=== PATIENT | male | born 1965 | race Caucasian/White ===

== ENCOUNTER 2020-03-22 11:51 | Outpatient (REF) | payer OTHER, SELFPAY ==
[2020-03-22 13:25] LABS: MANUAL DIFF FLAG NO
[2020-03-22 13:32] LABS: Basophils Absolute Auto 0.1 X10*3/uL (0.0-0.2); Eosinophils Absolute Auto 0.3 X10*3/uL (0.0-0.4); Eosinophils Percent Auto 3.2 % (0-4); Hematocrit 45.8 % (42-52); Hemoglobin 15.1 g/dl (14.0-18.0); Imm Gran Abs Auto 0.08 X10*3/uL (0.00-0.03); Lymphocytes Absolute Auto 2.2 X10*3/uL (1.2-4.9); Lymphocytes Percent Auto 26.7 % (20-40); Mean Corpuscular Hemoglobin 30.2 pg (27.0-33.0); Mean Corpuscular Volume 91.6 fL (80-98); Mean Platelet Volume 10.4 fL (9.4-12.4); Monocytes Absolute Auto 0.7 X10*3/uL (0.1-1.2); Monocytes Percent Auto 8.5 % (2-11); Neutrophils Absolute Auto 4.9 X10*3/uL (2.0-8.3); Neutrophils Percent Auto 59.6 % (45-73); Platelet Count 261 X10*3/uL (160-400); Red Cell Distribution Width 11.9 % (11.0-16.0); White Blood Count 8.2 X10*3/uL (4.8-10.8)
[2020-03-22 14:03] LABS: Alanine Aminotransferase 28 U/L (0-40); Albumin Level 4.5 g/dL (3.5-5.0); Alkaline Phosphatase 69 U/L (39-117); Aspartate Amino Transferase 16 U/L (5-37); Blood Urea Nitrogen 11 mg/dL (9-16); Calcium 9.2 mg/dL (8.4-10.2); Cholesterol 149 mg/dL; Estimated Glomerular Filt Rate > 60; HDL Cholesterol 70 mg/dL; LDL Cholesterol Calculated 67 mg/dl; Total Protein 6.7 g/dL (6.5-8.0); Triglycerides 61 mg/dL
[2020-03-22 14:12] LABS: Anion Gap 16 (12-20); Carbon Dioxide 23 mmol/L (22-29); Chloride 102 mmol/L (96-108); Glucose Fasting 342 mg/dL (60-99); Potassium 5.6 mmol/l (3.3-5.1); Sodium 135 mmol/L (135-145)
[2020-03-22 14:21] LABS: Creatinine Urine 59.29 mg/dL; Microalbumin Urine < 5.0 mg/L
[2020-03-22 14:33] LABS: Hemoglobin A1c % > 14.0 %
== END 2020-03-22 11:52 | disposition home or self-care (01) ==
LOC: HO.LAB 11:51
PROVIDERS: PCP Internal Medicine; Visit Provider Internal Medicine
DX: Z12.5 Encounter for screening for malignant neoplasm of prostate (principal); E78.00 Pure hypercholesterolemia, unspecified; I10 Essential (primary) hypertension; E11.9 Type 2 diabetes mellitus without complications
CPT/HCPCS: 36415; 80053; 80061; 82043; 83036; 84153; 85025

== ENCOUNTER 2021-01-20 15:49 | Outpatient (REF) | payer OTHER, SELFPAY ==
[2021-01-20 16:50] LABS: MANUAL DIFF FLAG NO
[2021-01-20 16:52] LABS: Basophils Percent Auto 0.4 % (0-2); Eosinophils Absolute Auto 0.1 X10*3/uL (0.0-0.4); Eosinophils Percent Auto 1.2 % (0-4); Hematocrit 41.6 % (42-52); Hemoglobin 14.1 g/dl (14.0-18.0); Imm Gran Pct Auto 1.3 % (0.0-0.4); Lymphocytes Absolute Auto 1.4 X10*3/uL (1.2-4.9); Lymphocytes Percent Auto 17.8 % (20-40); Mean Corpuscular HGB Conc 33.9 g/dl (31.0-36.0); Mean Corpuscular Hemoglobin 29.9 pg (27.0-33.0); Mean Corpuscular Volume 88.3 fL (80-98); Mean Platelet Volume 9.6 fL (9.4-12.4); Monocytes Absolute Auto 0.8 X10*3/uL (0.1-1.2); Neutrophils Absolute Auto 5.4 X10*3/uL (2.0-8.3); Neutrophils Percent Auto 69.3 % (45-73); Platelet Count 430 X10*3/uL (160-400); Red Blood Count 4.71 X10*6/uL (4.60-5.80); Red Cell Distribution Width 11.3 % (11.0-16.0); White Blood Count 7.8 X10*3/uL (4.8-10.8)
[2021-01-20 17:08] LABS: Hemoglobin A1c % > 14.0 %
[2021-01-20 17:48] LABS: Thyroid Stimulating Hormone 0.97 uIU/mL (0.32-4.0)
[2021-01-20 18:26] LABS: Creatinine Urine 44.18 mg/dL; Microalbumin Urine < 5.0 mg/L
[2021-01-20 19:23] LABS: Alanine Aminotransferase 11 U/L (0-40); Albumin Level 3.8 g/dL (3.5-5.0); Alkaline Phosphatase 53 U/L (39-117); Anion Gap 19 (12-20); Aspartate Amino Transferase 11 U/L (5-37); Bilirubin Total 0.4 mg/dL (0.0-1.0); Blood Urea Nitrogen 10 mg/dL (9-16); Calcium 9.2 mg/dL (8.4-10.2); Carbon Dioxide 20 mmol/L (22-29); Chloride 101 mmol/L (96-108); Estimated Glomerular Filt Rate > 60; Glucose Random 527 mg/dL (60-115); Potassium 4.7 mmol/L (3.3-5.1); Sodium 135 mmol/L (135-145); Total Protein 6.5 g/dL (6.5-8.0)
== END 2021-01-20 15:50 | disposition home or self-care (01) ==
LOC: HO.LAB 15:49
PROVIDERS: PCP Internal Medicine; Visit Provider Internal Medicine
DX: E11.9 Type 2 diabetes mellitus without complications (principal); E78.00 Pure hypercholesterolemia, unspecified; R63.4 Abnormal weight loss
CPT/HCPCS: 36415; 80053; 82043; 83036; 84443; 85025

== ENCOUNTER 2021-01-23 16:26 | Emergency (ER) | payer OTHER, SELFPAY ==
[2021-01-23 17:01] VITALS: BP 115/69; PULSE 99; RESP 16; TEMP 37.1; O2SAT 99; BMI 30.2
[2021-01-23 18:01] LABS: Glucose, Whole Blood 281 mg/dL (60-115)
[2021-01-23 18:12] LABS: MANUAL DIFF FLAG NO
[2021-01-23 18:18] LABS: Basophils Percent Auto 0.4 % (0-2); Eosinophils Absolute Auto 0.1 X10*3/uL (0.0-0.4); Eosinophils Percent Auto 1.2 % (0-4); Hematocrit 41.6 % (42-52); Imm Gran Abs Auto 0.12 X10*3/uL (0.00-0.03); Imm Gran Pct Auto 1.3 % (0.0-0.4); Lymphocytes Absolute Auto 2.4 X10*3/uL (1.2-4.9); Lymphocytes Percent Auto 26.5 % (20-40); Mean Corpuscular HGB Conc 33.7 g/dl (31.0-36.0); Mean Corpuscular Volume 89.1 fL (80-98); Mean Platelet Volume 8.8 fL (9.4-12.4); Monocytes Absolute Auto 0.8 X10*3/uL (0.1-1.2); Monocytes Percent Auto 8.5 % (2-11); Neutrophils Absolute Auto 5.6 X10*3/uL (2.0-8.3); Neutrophils Percent Auto 62.1 % (45-73); Platelet Count 496 X10*3/uL (160-400); Red Blood Count 4.67 X10*6/uL (4.60-5.80); Red Cell Distribution Width 11.4 % (11.0-16.0)
[2021-01-23 18:37] LABS: Acetone, serum QL Negative (Negative)
[2021-01-23 18:39] LABS: Anion Gap 15 (12-20); Blood Urea Nitrogen 8 mg/dL (9-16); Calcium 9.7 mg/dL (8.4-10.2); Carbon Dioxide 26 mmol/L (22-29); Chloride 103 mmol/L (96-108); Creatinine Clr Calc Pharmacy 111.8; Estimated Glomerular Filt Rate > 60; Glucose Random 319 mg/dL (60-115); Potassium 5.1 mmol/L (3.3-5.1); Sodium 139 mmol/L (135-145)
[2021-01-23 21:15] VITALS: BP 150/73; PULSE 102; RESP 18; O2SAT 99
--- NOTE | 2021-01-23 21:24 | ED_ITS ---
HPI - General Adult General Chief complaint: Recheck/Abnormal Lab/Rx Stated complaint: Uncontrolled Diabetes Time Seen by Provider: 01/23/21 21:11 Source: patient Mode of arrival: ambulatory Limitations: no limitations History of Present Illness HPI narrative: 56-year-old male with history of diabetes type 2 patient recently started on Trulicity once a week (patient received it once last week). Patient's blood sugar has been going hi, and patient was seen by his PCP treated for sinusitis last week. Because patient's blood sugar was uncontrolled he so his PCP today who sent him for admission to the hospital while patient in the hospital blood sugar was 315 with no anion gap or indication for DKA. Patient was easily controlled with IV fluids and insulin. Related Data Allergies Allergy/AdvReac Type Severity Reaction Status Date / Time feathers [FEATHERS] Allergy Unknown SINUS Unverified 02/22/20 17:29 PROBLEMS mold [MOLD] Allergy Unknown SINUS Unverified 02/22/20 17:29 PROBLEMS ENVIRONMENTAL Allergy Unknown SINUS Uncoded 02/22/20 17:29 PROBLEMS Review of Systems Review of Systems: All other systems are reviewed and are negative Constitutional: Reports as per HPI and Reports no additional constitutional complaints Eyes: Reports as per HPI and Reports no additional eye complaints Reports system reviewed and no additional complaints, except as documented Cardiovascular: Reports as per HPI and Reports no additional cardiovascular complaints Respiratory: Reports as per HPI and Reports no additional respiratory complaints Gastrointestinal: Reports as per HPI and Reports no additional gastrointestinal complaints Genitourinary: Reports no additional female genitourinary complaints Musculoskeletal: Reports no additional musculoskeletal complaints Skin/Breast: Reports system reviewed and no additional complaints, except as docu Psychiatric: Reports no additional psychiatric complaints Endocrine: Reports no additional endocrine complaints Hematologic/Lymphatic: Reports no additional hematologic/lymphatic complaints Allergic/Immunologic: Reports no additional allergic/immunologic complaints Reports system reviewed and no additional complaints, except as documented and Reports Abnormal speech present [facility] Past Medical History Medical History Acid reflux Diabetes Psoriasis Social History Social History Advance Directives: No Advance Directives Information Provided: No Physical Exam Vital Signs: Vital Signs: Last Vital Signs Temp 98.7 F 01/23/21 17:01 Pulse 86 01/23/21 23:35 Resp 16 01/23/21 23:35 BP 156/89 H 01/23/21 23:35 Pulse Ox 98 01/23/21 23:35 Body Mass Index 30.2 Vital signs have been reviewed as appeared to be correct. Blood pressure normal. Heart rate is elevated. Respiration rate normal. Temperature normal. Oxygen saturation normal. Appearance: Alert. Oriented X3. No acute distress. Head: Normal external exam. Normocephalic. Atraumatic. No Roberson signs noted. No raccoon eyes noted Eyes: PERRLA. EOMI. Conjunctiva and sclera normal. Eyelids normal. ENT: TM's Normal. Pharynx normal. Uvula midline. Moist mucous membranes. No trismus noted. No drooling noted. No muffled voice noted. Neck: Normal inspection. Neck supple. FROM. No adenopathy. Thyroid Normal. No meningeal signs. No neck mass noted. CVS: Normal heart rate and rhythm. Heart sound normal. No murmurs noted. Pulses normal throughout. Respiratory: No respiratory distress. Painless inspiration. Breath sounds normal. No wheezes/rales/rhonchi noted. Chest nontender. No accessory muscle usage noted or decreased air movement noted. Abdomen: Soft and nontender. Bowel sounds normal in all 4 quadrants. No distention noted. No organomegaly noted. No visible injury noted. Back: No CVA tenderness. Full range of motion noted. Skin: Skin warm and dry. Normal skin color. Normal skin turgor. No rashes/ lesions/lacerations noted. Extremities: No lower extremity edema. Extremities exhibit normal range of motion. Extremities nontender. Neuro: Oriented X 3. Cranial nerve exam: II-XII are grossly intact No motor deficit. No sensory deficit. Reflexes normal. Course Course Course Narrative: Assessment and plan. 56-year-old male with type 2 diabetes uncontrolled, patient on Trulicity once a week patient was sent by his PCP for uncontrolled high blood sugar and patient just finished a course of antibiotic for sinusitis. Patient is not in DKA, blood sugar was controlled with IV fluid and insulin IV. Patient is not meeting criteria for admission at this point. The case discussed with Dr. Leach and the patient to call for appointment tomorrow. Medical Decision Making Lab Data Lab results reviewed: Yes I reviewed the patient's lab results. Result diagrams: 01/23/21 18:07 01/23/21 18:07 Labs: Lab Results 01/23/21 01/23/21 01/23/21 Range/Units 17:56 18:07 18:07 WBC 9.0 (4.8-10.8) X10*3/uL RBC 4.67 (4.60-5.80) X10*6/uL Hgb 14.0 (14.0-18.0) g/dl Hct 41.6 L (42-52) % MCV 89.1 (80-98) fL MCH 30.0 (27.0-33.0) pg MCHC 33.7 (31.0-36.0) g/dl RDW 11.4 (11.0-16.0) % Plt Count 496 H (160-400) X10*3/uL MPV 8.8 L (9.4-12.4) fL Immature Gran % (Auto) 1.3 H (0.0-0.4) % Neut % (Auto) 62.1 (45-73) % Lymph % (Auto) 26.5 (20-40) % Mar[place]osa % (Auto) 8.5 (2-11) % Eos % (Auto) 1.2 (0-4) % Baso % (Auto) 0.4 (0-2) % Lymph # (Auto) 2.4 (1.2-4.9) X10*3/uL [place] # (Auto) 0.8 (0.1-1.2) X10*3/uL Eos # (Auto) 0.1 (0.0-0.4) X10*3/uL Baso # (Auto) 0.0 (0.0-0.2) X10*3/uL Abs Immat Gran (auto) 0.12 H (0.00-0.03) X10*3/uL Absolute Neuts (auto) 5.6 (2.0-8.3) X10*3/uL Absolute Nucleated RBC 0.000 (0.0-0.012) X10*3/uL Nucleated RBC % (auto) 0.0 (0.0-0.2) /100WBC Sodium (135-145) mmol/L Potassium (3.3-5.1) mmol/L Chloride (96-108) mmol/L Carbon Dioxide (22-29) mmol/L Anion Gap (12-20) BUN (9-16) mg/dL Creatinine (0.5-1.4) mg/dL Estim Creat Clear Calc Estimated GFR POC Glucose 281 H (60-115) mg/dL Random Glucose (60-115) mg/dL Calcium (8.4-10.2) mg/dL Acetone, Qual Negative (Negative) 01/23/21 01/23/21 01/23/21 Range/Units 18:07 21:45 23:27 WBC (4.8-10.8) X10*3/uL RBC (4.60-5.80) X10*6/uL Hgb (14.0-18.0) g/dl Hct (42-52) % MCV (80-98) fL MCH (27.0-33.0) pg MCHC (31.0-36.0) g/dl RDW (11.0-16.0) % Plt Count (160-400) X10*3/uL MPV (9.4-12.4) fL Immature Gran % (Auto) (0.0-0.4) % Neut % (Auto) (45-73) % Lymph % (Auto) (20-40) % Mariposa % (Auto) (2-11) % Eos % (Auto) (0-4) % Baso % (Auto) (0-2) % Lymph # (Auto) (1.2-4.9) X10*3/uL [place] # (Auto) (0.1-1.2) X10*3/uL Eos # (Auto) (0.0-0.4) X10*3/uL Baso # (Auto) (0.0-0.2) X10*3/uL Abs Immat Gran (auto) (0.00-0.03) X10*3/uL Absolute Neuts (auto) (2.0-8.3) X10*3/uL Absolute Nucleated RBC (0.0-0.012) X10*3/uL Nucleated RBC % (auto) (0.0-0.2) /100WBC Sodium 139 (135-145) mmol/L Potassium 5.1 (3.3-5.1) mmol/L Chloride 103 (96-108) mmol/L Carbon Dioxide 26 (22-29) mmol/L Anion Gap 15 (12-20) BUN 8 L (9-16) mg/dL Creatinine 0.77 (0.5-1.4) mg/dL Estim Creat Clear Calc 111.8 Estimated GFR > 60 POC Glucose 304 H 226 H (60-115) mg/dL Random Glucose 319 H D (60-115) mg/dL Calcium 9.7 (8.4-10.2) mg/dL Acetone, Qual (Negative) Discharge Plan Discharge Clinical Impression: Diabetes mellitus Qualifiers: Diabetes mellitus type: type 2 Diabetes mellitus prison insulin use: without prison use Diabetes mellitus complication status: with hyperglycemia Qualified Code(s): E11.65 - Type 2 diabetes mellitus with hyperglycemia Patient Disposition: Home, Self-Care Instructions: Diabetes and Nutrition (ED) Referrals: Jarad Leach MD [Primary Care Provider] - 2 days
[2021-01-23] MEDS: Insulin Regular, Human 100 UNIT/ML 3 ML VIAL IVPUSH (21:46)
[2021-01-23] MEDS: 0.9 % Sodium Chloride 1,000 ML 999 ML IVCONT (21:47)
[2021-01-23 21:54] LABS: Glucose, Whole Blood 304 mg/dL (60-115)
[2021-01-23 23:30] LABS: Glucose, Whole Blood 226 mg/dL (60-115)
[2021-01-23 23:35] VITALS: BP 156/89; PULSE 86; RESP 16; O2SAT 98
== END 2021-01-24 00:08 | disposition home or self-care (01) ==
PROVIDERS: Emergency Provider Emergency Medicine; PCP Internal Medicine
DX: E11.65 Type 2 diabetes mellitus with hyperglycemia (principal)
CPT/HCPCS: 36415; 80048; 82009; 82947; 85025; 96361; 96374; 99284

== ENCOUNTER 2021-09-05 15:26 | Outpatient (REF) | payer OTHER, SELFPAY ==
[2021-09-05 15:56] LABS: Basophils Absolute Auto 0.1 X10*3/uL (0.0-0.2); Basophils Percent Auto 0.6 % (0-2); Eosinophils Absolute Auto 0.2 X10*3/uL (0.0-0.4); Eosinophils Percent Auto 1.6 % (0-4); Hematocrit 44.4 % (42.0-52.0); Hemoglobin 14.9 g/dl (14.0-18.0); Imm Gran Abs Auto 0.05 X10*3/uL (0.00-0.03); Imm Gran Pct Auto 0.5 % (0.0-0.4); Lymphocytes Absolute Auto 2.9 X10*3/uL (1.2-4.9); Lymphocytes Percent Auto 30.6 % (20-40); MANUAL DIFF FLAG NO; Mean Corpuscular HGB Conc 33.6 g/dl (31.0-36.0); Mean Corpuscular Hemoglobin 30.3 pg (27.0-33.0); Mean Corpuscular Volume 90.4 fL (80.0-98.0); Mean Platelet Volume 9.1 fL (9.4-12.4); Monocytes Absolute Auto 0.8 X10*3/uL (0.1-1.2); Monocytes Percent Auto 8.4 % (2-11); Neutrophils Absolute Auto 5.5 x10*3/uL (2.0-8.3); Neutrophils Percent Auto 58.3 % (45-73); Platelet Count 298 X10*3/uL (160-400); Red Blood Count 4.91 X10*6/uL (4.60-5.80); White Blood Count 9.4 X10*3/uL (4.8-10.8)
[2021-09-05 16:17] LABS: Creatinine Urine 96.17 mg/dL; Microalbumin Urine < 5.0 mg/L
[2021-09-05 16:22] LABS: Alanine Aminotransferase 37 U/L (0-40); Albumin Level 4.6 g/dL (3.5-5.0); Alkaline Phosphatase 58 U/L (39-117); Anion Gap 12 (12-20); Aspartate Amino Transferase 22 U/L (5-37); Bilirubin Total 0.5 mg/dL (0.0-1.0); Blood Urea Nitrogen 17 mg/dL (9-16); Carbon Dioxide 27 mmol/L (22-29); Chloride 105 mmol/L (96-108); Cholesterol 189 mg/dL; Estimated Glomerular Filt Rate > 60; Glucose Random 82 mg/dL (60-115); Potassium 5.2 mmol/L (3.3-5.1); Sodium 139 mmol/L (135-145); Total Protein 7.2 g/dL (6.5-8.0)
[2021-09-05 16:55] LABS: Estimated Average Glucose 128 mg/dL; Hemoglobin A1c % 6.1 %
== END 2021-09-05 15:27 | disposition home or self-care (01) ==
LOC: HO.LAB 15:26
PROVIDERS: PCP Internal Medicine; Visit Provider Internal Medicine
DX: E11.9 Type 2 diabetes mellitus without complications (principal); K21.9 Gastro-esophageal reflux disease without esophagitis; E78.00 Pure hypercholesterolemia, unspecified
CPT/HCPCS: 36415; 80053; 82043; 82465; 83036; 85025

== ENCOUNTER → 2022-01-16 13:34 | Outpatient (BNVA) | payer SELFPAY | PROVIDERS: PCP Internal Medicine; Visit Provider Physician Assistant | DX: Z02.79 Encounter for issue of other medical certificate (principal) ==

== ENCOUNTER 2024-05-18 10:37 | Outpatient (REF) | payer OTHER, SELFPAY ==
--- OUTSIDE RECORDS SUMMARY | 2024-05-18 10:43 | XMS_ITS | Continuity of Care Document ---
Author Name [facility] Organization [facility] Care Team Providers Care Abstracter Name Role Phone [facility] Unavailable Unavailable Problems Combined list of problems from Department of Defense and Veterans Affairs facilities. It does not include entries that were removed or entered in error. Problem Status Onset Date Problem Type Date of Resolution Comments Source Adopted Active Condition Dec 24 Entered By: JANET NAVARRETE Comment: Biological Father: ETOHism, DMJul 2016 Entered By: JANET NAVARRETE Comment: Biological Mother: Bipolar [facility] Allergic rhinitis Active [facility] Anxiety (SNOMED CT 26312531) Active Condition [facility] Asthma (SNOMED CT 036221027) Active Condition [place] ([facility]) Attention deficit hyperactivity disorder Active Condition Apr 01, 2017 Entered By: FRANCISCO SANTOS Comment: confirmed through formal neuropsych testing [facility] Bipolar disorder Active Condition [facility] Colonoscopy Screening Active Condition Dec 24, 2016 Entered By: JANET NAVARRETE Comment: 2016 - small polyps - Repeat 10 yrs (2025) [facility] Gastroesophageal reflux disease (SNOMED CT 588826920) Active Condition [facility] Hyperlipidemia Active [facility] Obesity (SNOMED CT 727589479) Active Condition [place] ([facility] Obstructive sleep apnea (SNOMED CT 72008481) Active Condition Dec 24, 2016 Entered By: JANET NAVARRETE Comment: 09/07/2016: MILD [place] ([facility]) Pain of left elbow joint Active Condition [facility] Primary Care Physician Active Condition Dec 24, 2016 Entered By: JANET NAVARRETE Comment: Dr Mik Leach [facility] Psoriasis (SNOMED CT 0680260) [facility] Type 2 diabetes mellitus Active Condition Aug 01, 2018 Entered By: JANET NAVARRETE Comment: Dxed 2018 [place] ([facility]) Tdap 2009 Inactive Condition 03/26/2011 [place] [facility] ([facility]) Medications Combined list of outpatient medications from Department of [facility] and Veterans Affairs facilities.Medications provided include 1) outpatient medications from the last 15 months, and 2) patient-reported medications. Medication Details Route Status Patient Instructions Prescription Expires Prescription Number Last Dispense Date Ordering Provider Order Date Order Qty Source CETIRIZINE HCL 10MG TAB TAKE ONE TABLET BY MOUTH EVERY DAY ORAL ACTIVE LETI NAVARRETE SA [facility] HYDROCORTIS ONE 1% CREAM,TOP APPLY A THIN LAYER TOPICALL Y EVERY DAY TOPICA L ACTIVE LETI NAVARRETE SA 2016 [facility] OMEPRAZOLE 20MG CAP,EC TAKE 1 CAPSULE BY MOUTH EVERY MORNING 30 MINUTES BEFORE BREAKFAS T ORAL ACTIVE LETI NAVARRETE SA 2016 [facility] Allergies, Adverse Reactions, Alerts Combined list of allergies from Department of Defense and Veterans Affairs facilities. It does not include entries that were removed or entered in error. Substance Category Reaction Severity Reaction type Status Date Reported Comments Source DUST MITES Propensity to adverse reaction (finding) [facility] [facility] FEATHERS Propensity to adverse reaction (finding) active 6 [facility] [place] [facility] MOLD Propensity to adverse reaction (finding) active [facility] TREES Propensity to adverse reaction (finding) active 6 [facility] Immunizations Combined list of available immunizations from the Department of Defense and Veterans Affairs facilities. Immunization Series Date Given Administered By Site Reaction Lot Number CVX Code Drug Well Service Derrick Worker Status Comments Source INFLUENZA, SEASONAL, INJECTABLE 2016 141 complet ed Site: Left Deltoid [place] FLU,3 YRS (HISTORICAL) 2010 88 complet ed Site: Left Deltoid [place] ([facility]) DTAP, UNSPECIFIED FORMULATION 2008 107 complet ed [place] [facility] [place] [facility] FLU,3 YRS (HISTORICAL) 2005 88 complet ed Site: Right Deltoid [place] ([facility]) Encounters Combined list of: 1) Encounters from Department of Veterans Affairs facilities going back up to thelast 18 months. 2) Encounters from the Department of Defense facilities going back up to 280 months. Location Location Details Encounter Type Encounter Number Reason For Visit Attending Provider ADM Date DC Date Status Disposition Source [place] [facility] [place] [facility] Outpatient Encounter [id number] 04/14 [place] [facility] [place] [facility] Social History Combined list of available smoking, tobacco, and other social history from Department of Defense and Veterans Affairs facilities. Social History Type Response Date Comment Sourc e Tobacco smoking status NHIS VA-TOBACCO NEVER USED 03/03/2022 [facility] D History of tobacco use VA-TOBACCO NEVER USED 03/04/2021 [facility] D History of tobacco use VA-TOBACCO NEVER USED 04/06/2019 [facility] D History of tobacco use ORYX ADMIT TOBACCO SCREEN NO 04/01/2018 [place] [facility] [place] [facility] History of tobacco use [place]-TO[place]CO NEVER USED 04/01/2018 [place] [facility] [place] [facility] History of tobacco use LIFETIME NON-TOBACCO USER 08/27/2017 [place] History of tobacco use LIFETIME NON-TOBACCO USER 08/25/2016 [place] [facility] [place] [facility] History of tobacco use LIFETIME NON-SMOKER 06/26/2003 [place] ( [facility]) History of tobacco use LIFETIME NON-SMOKER 06/29/2002 [place] ( [facility])
[2024-05-18 11:26] LABS: MANUAL DIFF FLAG NO
[2024-05-18 11:46] LABS: Basophils Absolute Auto 0.1 X10*3/uL (0.0-0.2); Basophils Percent Auto 0.6 % (0-2); Eosinophils Absolute Auto 0.1 X10*3/uL (0.0-0.4); Eosinophils Percent Auto 0.8 % (0-4); Imm Gran Abs Auto 0.09 X10*3/uL (0.00-0.03); Imm Gran Pct Auto 0.9 % (0.0-0.4); Lymphocytes Absolute Auto 2.1 X10*3/uL (1.2-4.9); Lymphocytes Percent Auto 21.3 % (20-40); Mean Corpuscular HGB Conc 35.6 g/dl (31.0-36.0); Mean Corpuscular Hemoglobin 31.4 pg (27.0-33.0); Mean Corpuscular Volume 88.2 fL (80.0-98.0); Mean Platelet Volume 9.3 fL (9.4-12.4); Monocytes Absolute Auto 0.8 X10*3/uL (0.1-1.2); Monocytes Percent Auto 8.6 % (2-11); Neutrophils Absolute Auto 6.7 x10*3/uL (2.0-8.3); Neutrophils Percent Auto 67.8 % (45-73); Platelet Count 257 X10*3/uL (160-400); Red Cell Distribution Width 11.8 % (11.0-16.0); White Blood Count 9.8 X10*3/uL (4.8-10.8)
[2024-05-18 11:57] LABS: Hemoglobin A1c % > 14.0 % (<6.0)
[2024-05-18 12:18] LABS: Alanine Aminotransferase 29 U/L (0-40); Albumin Level 4.5 g/dL (3.5-5.0); Alkaline Phosphatase 67 U/L (39-117); Anion Gap 15 (12-20); Aspartate Amino Transferase 15 U/L (5-37); Bilirubin Total 0.7 mg/dL (0.0-1.0); Blood Urea Nitrogen 12 mg/dL (9-16); Calcium 10.3 mg/dL (8.4-10.2); Carbon Dioxide 25 mmol/L (22-29); Chloride 101 mmol/L (96-108); Cholesterol 207 mg/dL (<200); Estimated Glomerular Filt Rate > 60; Glucose Fasting 340 mg/dL (60-99); HDL Cholesterol 85 mg/dL (>40); LDL Cholesterol Calculated 104 mg/dL (<100); Potassium 4.9 mmol/L (3.3-5.1); Sodium 136 mmol/L (135-145); Total Protein 7.6 g/dL (6.5-8.0); Triglycerides 94 mg/dL (<150)
[2024-05-18 12:31] LABS: Prostate Specific Antigen 0.76 ng/mL (<0.05-4.0)
[2024-05-18 14:11] LABS: Microalbum/Creatinine Ratio Ur 10.5 ug/mg cr (<30)
== END 2024-05-18 10:38 | disposition home or self-care (01) ==
LOC: HO.LAB 10:37
PROVIDERS: PCP Internal Medicine; Visit Provider Internal Medicine
DX: E11.9 Type 2 diabetes mellitus without complications (principal); E78.00 Pure hypercholesterolemia, unspecified; Z12.5 Encounter for screening for malignant neoplasm of prostate
CPT/HCPCS: 36415; 80053; 80061; 82043; 82570; 83036; 84153; 85025

== ENCOUNTER 2024-05-22 14:46 | Outpatient (AMB) | payer OTHER, SELFPAY ==
--- NOTE | 2024-05-22 14:48 | MHC.OFFVIS ---
Vital Signs 05/22/24 14:57 Height 5 ft 7 in Weight 187 lb 2 oz BMI 29.3 BP 132/69 Blood Pressure Location Lt brachial Position Sitting Pulse 119 H Intake Visit Reasons: scalp abscess Intake Note: Patient is seen in office for possible I&D following scalp abscess. Pt c/o:onset one week, started with a sinus infection and then notice a lump on the scalp, has tried squeezing, some discharge, has taken Tylenol Greenhouse Worker Required: No Accompanied by: Self / Same As Patient Allergies feathers [FEATHERS] Allergy (Unknown, Unverified 05/22/24 15:08) SINUS PROBLEMS mold [MOLD] Allergy (Unknown, Unverified 05/22/24 15:08) SINUS PROBLEMS ENVIRONMENTAL Allergy (Unknown, Uncoded 05/22/24 15:08) SINUS PROBLEMS HPI HPI scalp abscess: Details: 59-year-old male referred for a scalp abscess. He says that he has had this for about a few days now. He says that he has been tender and painful. He thought initially that this was because of an ingrown hair. He denies any fever or chills. He is a known diabetic. He denies any trauma to the area or any insect bite. [facility] Medical History (Updated 05/22/24 @ 15:10 by Jarad Garcia MD) Scalp abscess Psoriasis Acid reflux Diabetes Review of Systems Const Denies chills and Denies fever(s) Card Denies chest pain, Denies dyspnea and Denies dyspnea on exertion Resp Denies cough, Denies dyspnea and Denies dyspnea on exertion GI Denies hematochezia and Denies change in bowel habits Denies hematuria and Denies difficulty urinating Musc Denies back pain and Denies limited range of motion Neuro Denies focal weakness and Denies convulsions Psych Denies depression and Denies mood swings Physical Exam Vital Signs: Last Vital Signs Pulse 119 H 05/22/24 14:57 BP 132/69 05/22/24 14:57 BMI result Body Mass Index 29.3 Const General: comfortable and no acute distress Orientation/consciousness: patient oriented x3 HEENT Other: On the right parietal area is note of a fluctuant mass, about 1.5 cm, very tender to touch, with redness, and some scanty drainage from the center Neck Neck: Yes no lymphadenopathy Resp Auscultation: clear to auscultation bilaterally Cardio Rhythm: regular rhythm GI Palpation (GI): Soft to palpation, nontender and no guarding Neuro General: patient oriented x3 Office Procedures I&D Drain Details: He was in reclining position. The area of the abscess was prepped and draped. Lidocaine 1% was used for local anesthesia. I made a cruciate incision generously on the skin overlying the fluctuant area using blade 11. This carried down through the full-thickness of the skin to enter the abscess cavity. Large amounts of pus was drained. I bluntly debrided the cavity with Q-tips as well as with hemostats. I then applied dry dressings. He tolerated procedure well. There was no significant blood loss. [id number] of Skin Abscess, complex All charges added?: Procedure code (CPT) selection complete Assessment & Plan Assessment & Plan (1) Scalp abscess: Code(s): L02.811 - Cutaneous abscess of head [any part, except face] Category: Medical Plan: Current exam is consisted with a scalp abscess. This is likely from an infected Pilar cyst. I explained to him that it would be best to do an I&D. I explained the technique of this procedure under local anesthesia. I reviewed the risks, benefits, and alternatives. He had given consent I&D was done in the office. He tolerated the procedure well. Large amounts of pus was drained. I instructed him on good wound care. I also told him that he is welcome to come back to the office to be re-evaluated if he has any concerns or if he feels that this is worsening. Coding Level of Care Code New Pt Level 3 (05808) Diagnoses Scalp abscess L02.811 CPT Codes I&D Drain - Drain 2: 26765-Pfjemafb of Skin Abscess, complex ([id number])
--- OUTSIDE RECORDS SUMMARY | 2024-05-22 14:48 | XMS_ITS | Continuity of Care Document ---
Author Name [facility] Organization [facility] Care Team Providers Care Criminal Defense Attorney Name Role Phone [facility] Unavailable Unavailable Problems Combined list of problems [...] [facility] Anxiety (SNOMED CT 59902744) Active [facility] Asthma (SNOMED CT 796539986) Active Condition [place] ([facility]) Attention deficit hyperactivity [...] [facility] Gastroesophageal reflux disease (SNOMED CT 475246780) Active Condition [facility] Hyperlipidemia Active [facility] Obesity (SNOMED CT 987260732) Active Condition [place] ([facility]) Obstructive sleep apnea (SNOMED CT 16664468) Active Condition Dec 24, 2016 Entered By: JANET NAVARRETE Comment: 09/07/2016: MILD [place] ([facility]) Pain of left elbow joint Active Condition [facility] Primary Care Physician Active Condition Dec 24, 2016 Entered By: JANET NAVARRETE Comment: Dr Mik Leach [facility] Psoriasis (SNOMED CT 4820793) [facility] Type 2 diabetes mellitus Active Condition Aug 01, 2018 Entered By: JANET NAVARRETE Comment: Dxed 2018 [place] ([facility]) Tdap 2009 Inactive Condition 03/26/2011 [place] [facility] ([facility]) Medications Combined list of outpatient medications from Department of [facility] and Veterans Affairs facilities.Medications provided include 1) outpatient medications from the last 15 months, and 2) patient-reported medications. Medication Details Route Status Patient Instructions Prescription Expires Prescription Number Last Dispense Date Ordering Provider Order Date Order Qty Source CETIRIZINE HCL 10MG TAB TAKE ONE TABLET BY MOUTH EVERY DAY ORAL ACTIVE LETI NAVARRETE SA [facility] HYDROCORTIS ONE 1% CREAM,TOP APPLY A THIN LAYER TOPICALL Y EVERY DAY TOPICA L ACTIVE LETI NAVARRETE SA [facility] OMEPRAZOLE 20MG CAP,EC TAKE 1 CAPSULE BY MOUTH EVERY MORNING 30 MINUTES BEFORE BREAKFAS T ORAL ACTIVE LETI NAVARRETE SA [facility] Allergies, Adverse Reactions, Alerts Combined list of allergies from Department of Defense and Veterans Affairs facilities. It does not include entries that were removed or entered in error. Substance Category Reaction Severity Reaction type Status Date Reported Comments Source DUST MITES Propensity to adverse reaction (finding) active 6 [facility] [place] [facility] FEATHERS Propensity to adverse reaction (finding) active 6 [facility] [place] [facility] MOLD Propensity to adverse reaction (finding) active [facility] TREES Propensity to adverse reaction (finding) active 6 [facility] Immunizations Combined list of available immunizations from the Department of Defense and Veterans Affairs facilities. Immunization Series Date Given Administered By Site Reaction Lot Number CVX Code Drug Felt Cementer Status Comments Source INFLUENZA, SEASONAL, INJECTABLE 2016 141 complet ed Site: Left Deltoid [place] FLU,3 YRS (HISTORICAL) 2010 88 complet ed Site: Left Deltoid [place] ([facility]) DTAP, UNSPECIFIED FORMULATION 2008 107 complet ed [place] [facility] [place] [facility] FLU,3 YRS (HISTORICAL) 2005 88 [...] ADM Date DC Date Status Disposition Source [place] [facility] [place] [facility] Outpatient Encounter [id number] 04/14 [place] [facility] [place] [facility] Social History Combined list of available smoking, tobacco, and other social history from Department of Defense and Veterans Affairs facilities. Social History Type Response Date Comment Sourc e Tobacco smoking status NHIS VA-TOBACCO NEVER USED 03/03/2022 [facility] D History of tobacco use VA-TOBACCO NEVER USED 03/04/2021 [facility] D History of tobacco use VA-TOBACCO NEVER USED 04/06/2019 [facility] D History of tobacco use ORYX ADMIT TOBACCO SCREEN NO 04/01/2018 [place] [facility] [place] [facility] History of tobacco use [place]-TO[place]ACCO NEVER USED 04/01/2018 [place] [facility] [place] [facility] History of tobacco use LIFETIME NON-TOBACCO USER 08/27/2017 [place] History of tobacco use LIFETIME NON-TOBACCO USER 08/25/2016 [place] [facility] [place] [facility] History of tobacco use LIFETIME NON-SMOKER 06/26/2003 [place] ( [facility]) History of tobacco use LIFETIME NON-SMOKER 06/29/2002 [place] ( [facility])
[2024-05-22 14:57] VITALS: BP 132/69; PULSE 119; BMI 29.3
== END 2024-05-22 15:37 | disposition home or self-care (01) ==
PROVIDERS: PCP Internal Medicine; Visit Provider Surgery
DX: L02.811 Cutaneous abscess of head [any part, except face] (principal)
CPT/HCPCS: 10060; 99203

== ENCOUNTER → 2024-05-25 12:27 | Outpatient (BNVA) | payer OTHER, SELFPAY | PROVIDERS: PCP Internal Medicine; Visit Provider Surgery ==

== ENCOUNTER 2024-05-25 12:36 | Outpatient (AMB) | payer OTHER, SELFPAY ==
--- NOTE | 2024-05-25 12:36 | A.OFFVIS_ITS ---
Intake Visit Reasons: urgical area on head might be infected Intake Note: Patient being seen today as urgent appointment. Patient concerned with Rt vertex I&D site looks infected. Inflamed, red, tender, oozing yellowish discharge. Currently on the 3rd day taking erythromycin for sinus infection. Phlebotomy Services Technician Required: No Accompanied by: Self / Same As Patient Allergies feathers [FEATHERS] Allergy (Unknown, Unverified 05/25/24 12:39) SINUS PROBLEMS mold [MOLD] Allergy (Unknown, Unverified 05/25/24 12:39) SINUS PROBLEMS ENVIRONMENTAL Allergy (Unknown, Uncoded 05/25/24 12:39) SINUS PROBLEMS Medication List - Last Reconciled 05/29/24 by Jarad Garcia MD omeprazole 20 mg PO DAILY HPI HPI urgical area on head might be infected: Details: He had undergone an I&D of a scalp abscess last week. He called the office to have this checked as he notices some drainage still. He describes some residual redness He denies any fever. [facility] Medical History Scalp abscess Psoriasis Acid reflux Diabetes Review of Systems Const Denies chills and Denies fever(s) Card Denies chest pain Resp Denies cough GI Denies abdominal pain Physical Exam Const General: comfortable and no acute distress HEENT Other: I&D site with some residual induration, minimal discharge, no fluctuance, no cellulitis Resp Effort & Inspection: normal respiratory effort Assessment & Plan Assessment & Plan (1) Scalp abscess: Code(s): L02.811 - Cutaneous abscess of head [any part, except face] Category: Medical Plan: I&D was done last week. He wanted a postop check. The I&D site has much less induration. There is still some scanty discharge. I told him that he should massage the area to promote drainage of the abscess cavity I also instructed him on good wound care. I told him to come back to the office if he does not notice any further improvement in the next week or 2 or if there is any worsening. Coding Level of Care Code Est Pt Level 2 (38308) Diagnoses Scalp abscess L02.811
--- OUTSIDE RECORDS SUMMARY | 2024-05-25 12:38 | XMS_ITS | Continuity of Care Document ---
Author Name [facility] Organization [facility] Care Team Providers Care Servicer Travel Trailers Name Role Phone [facility] Unavailable Unavailable Problems Combined list of problems [...] [facility] Anxiety (SNOMED CT [id number]) [facility] Asthma (SNOMED CT [id number]) Active Condition [facility] ([facility]) Attention deficit hyperactivity [...] [facility] Gastroesophageal reflux disease (SNOMED CT 110836024) Active Condition [facility] Hyperlipidemia Active Condition [facility] Obesity (SNOMED CT 044431678) Active Condition [facility] ([facility]) Obstructive sleep apnea (SNOMED CT 59383152) Active Condition Dec 24, 2016 Entered By: JANET NAVARRETE Comment: 09/07/2016: [facility]ILD [facility] ([facility]) Pain of left elbow joint Active Condition [facility] Primary Care Physician Active Condition Dec 24, 2016 Entered By: JANET NAVARRETE Comment: Dr Mik Leach [facility] Psoriasis (SNOMED CT 2905781) [facility] Type 2 diabetes mellitus Active Condition Aug 01, 2018 Entered By: JANET NAVARRETE Comment: Dxed 2018 [facility] ([facility]) Tdap 2009 Inactive Condition 03/26/2011 [facility] ([facility]) Medications Combined list of outpatient medications from Department of [facility], [place] and [facility] Affairs facilities.Medications provided include 1) outpatient medications from the last 15 months, and 2) patient-reported medications. Medication Details Route Status Patient Instructions Prescription Expires Prescription Number Last Dispense Date Ordering Provider Order Date Order Qty Source CETIRIZINE HCL 10MG TAB TAKE ONE TABLET BY MOUTH EVERY DAY ORAL ACTIVE [facility]I [facility]AR[facility] HYDROCORTIS ONE 1% CREAM,TOP APPLY A THIN LAYER TOPICALL Y EVERY DAY TOP[place] L ACTIVE LETI NAVARRETE [facility] OMEPRAZOLE 20MG CAP,EC TAKE 1 CAPSULE BY MOUTH EVERY MORNING 30 MINUTES BEFORE BREAKFAS T ORAL ACTIVE LETI NAVARRETE [facility] Allergies, Adverse Reactions, Alerts Combined list of allergies from Department of Defense and Veterans Affairs facilities. It does not include entries that were removed or entered in error. Substance Category Reaction Severity Reaction type Status Date Reported Comments Source DUST MITES Propensity to adverse reaction (finding) active [facility] FEATHERS Propensity to adverse reaction (finding) active 6 [facility] MOLD Propensity to adverse reaction (finding) [facility] TREES Propensity to adverse reaction (finding) active 6 [facility] Immunizations Combined list of available immunizations from the Department of Defense and Veterans Affairs facilities. Immunization Series Date Given Administered By Site Reaction Lot Number CVX Code Drug Exercise Physiologist Status Comments Source INFLUENZA, SEASONAL, INJECTABLE 2016 141 complet ed Site: Left Deltoid [place] FLU,3 YRS (HISTORICAL) 2010 88 complet ed Site: Left Deltoid [facility] ([facility]) DTAP, UNSPECIFIED FORMULATION 2008 107 complet ed [place] [facility] [place] [facility] [facility] FLU,3 YRS (HISTORICAL) 2005 [...] ADM Date DC Date Status Disposition Source [place] [facility] Outpatient Encounter [id number] 04/14 [place] [facility] [place] [facility] Social History Combined list of available smoking, tobacco, and other social history from Department of Defense and Veterans Affairs facilities. Social History Type Response Date Comment Sourc e Tobacco smoking status NHIS VA-TOBACCO NEVER USED 03/03/2022 [facility] D History of tobacco use VA-TOBACCO NEVER USED 03/04/2021 [facility] D History of tobacco use VA-TOBACCO NEVER USED 04/06/2019 [facility] D History of tobacco use ORYX ADMIT TOBACCO SCREEN NO 04/01/2018 [facility] [place] [facility] History of tobacco use IA-TOBACCO NEVER USED 04/01/2018 [place] [facility] [place] [facility] History of tobacco use LIFETIME NON-TOBACCO USER 08/27/2017 [facility] History of tobacco use LIFETIME NON-TOBACCO USER 08/25/2016 [place] [facility] [place] [facility] History of tobacco use LIFETIME NON-SMOKER 06/26/2003 [place] ( [facility]) History of tobacco use LIFETIME NON-SMOKER 06/29/2002 [place] ( [facility])
== END 2024-05-25 12:52 | disposition home or self-care (01) ==
LOC: HO.HGS 12:36
PROVIDERS: PCP Internal Medicine; Visit Provider Surgery
DX: L02.811 Cutaneous abscess of head [any part, except face] (principal)
CPT/HCPCS: 99024

== ENCOUNTER 2024-06-05 15:52 | Outpatient (AMB) | payer OTHER, SELFPAY ==
--- NOTE | 2024-06-05 15:54 | A.OFFVIS_ITS ---
Vital Signs 06/05/24 15:56 Height 5 ft 7 in Weight 187 lb 1.983 oz BMI 29.3 Intake Visit Reasons: urgical area on head might be infected Intake Note: This patient presents for wound check, s/p I&D scalp abscess. Pt c/o; ? infection. Spiral Spring Winder Required: No Accompanied by: Self / Same As Patient Allergies feathers [FEATHERS] Allergy (Unknown, Unverified 06/05/24 15:57) SINUS PROBLEMS mold [MOLD] Allergy (Unknown, Unverified 06/05/24 15:57) SINUS PROBLEMS ENVIRONMENTAL Allergy (Unknown, Uncoded 06/05/24 15:57) SINUS PROBLEMS Medication List - Last Reconciled 06/05/24 by Jarad Garcia MD glipizide 10 mg PO BID metformin 1,000 mg PO BID omeprazole 20 mg PO DAILY HPI HPI urgical area on head might be infected: Details: He is here for follow-up for his scalp abscess. I had done an I&D of this about 2 weeks ago in the office. He continues to do well. He says he does not notice anymore drainage. [facility] Medical History Scalp abscess Psoriasis Acid reflux Diabetes Surgical History History of incision and drainage (~05/22/24) Family History Other Family history unknown Social History Alcohol intake: unknown Patient Tobacco Use Status: Tobacco use Unknown Review of Systems Const Denies chills and Denies fever(s) Card Denies chest pain Resp Denies cough GI Denies abdominal pain Physical Exam Vital Signs: BMI result Body Mass Index 29.3 Const General: comfortable and no acute distress HEENT Other: Previous abscess site has now healed completely without any residual fluctuance, induration or redness Resp Effort & Inspection: normal respiratory effort Cardio Rate: regular rate Assessment & Plan Assessment & Plan (1) Scalp abscess: Code(s): L02.811 - Cutaneous abscess of head [any part, except face] Category: Medical Plan: This is now completely healed. There is no residual induration, discharge or redness. He can therefore follow up on a p.r.n. basis. Coding Level of Care Code Est Pt Level 2 (61393) Diagnoses Scalp abscess L02.811
[2024-06-05 15:56] VITALS: BMI 29.3
== END 2024-06-05 16:00 | disposition home or self-care (01) ==
PROVIDERS: PCP Internal Medicine; Visit Provider Surgery
DX: L02.811 Cutaneous abscess of head [any part, except face] (principal)
CPT/HCPCS: 99212

== ENCOUNTER 2024-08-31 15:24 | Outpatient (AMB) | payer OTHER, SELFPAY ==
[2024-08-31 15:39] VITALS: BP 126/80; PULSE 111; TEMP 36.5; O2SAT 98; BMI 30.1
--- NOTE | 2024-08-31 15:39 | MHC.PC.OV ---
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 Accompanied by: Self / Same As Patient Allergies feathers [FEATHERS] Allergy (Unknown, Unverified 08/31/24 15:40) SINUS PROBLEMS mold [MOLD] Allergy (Unknown, Unverified 08/31/24 15:40) SINUS PROBLEMS ENVIRONMENTAL Allergy (Unknown, Uncoded 08/31/24 15:40) SINUS PROBLEMS Tobacco use date assessed: 08/31/24 Dental Screening Dental Screen Date: 08/31/24 Did you have a dental visit in the last 12 months?: Yes Did you have a dental problem in the last 6 months where you did not have access to dental care?: No HPI HPI Comments History of Present Illness Details The patient is a 59 y/o male with past medial history of diabetes, GERD, hyperlipidemia presenting for follow up. Last seen by pcp Wallace Type 2 diabetes: On metformin, glipizide. A1C form >14 to 12.6. Reports improved compliance and diet. Due for A1C in 2 weeks. GERD: on omeprazole ROS CONSTITUTIONAL: Denies weight loss, fever and chills. HEENT: Denies changes in vision and hearing. RESPIRATORY: Denies SOB and cough. CV: Denies palpitations and CP GI: Denies abdominal pain, nausea, vomiting and diarrhea. : Denies dysuria and urinary frequency. MSK: Denies new myalgia and joint pain. SKIN: Denies rash and pruritus. NEUROLOGICAL: Denies headache PSYCHIATRIC: Denies recent changes in mood. PHYSICAL EXAM: GENERAL: Alert and oriented x 3. NAD EYES: EOMI. Anicteric. HENT: Moist mucous membranes. No scleral icterus. No cervical lymphadenopathy. LUNGS: Clear to auscultation bilaterally. CARDIOVASCULAR: Regular rate and rhythm. No murmur. No JVD. ABDOMEN: Soft, non-tender +bs EXTREMITIES: No edema. Non-tender. SKIN: No rashes or lesions. Warm. NEUROLOGIC: No focal neurological deficits. CN II-XII grossly intact PSYCHIATRIC: Cooperative. Appropriate mood and affect [facility] Medical History Scalp abscess Psoriasis Acid reflux Diabetes Surgical History History of incision and drainage (~05/22/24) Family History Mother No problems noted. Father No problems noted. Other Family history unknown Social History Housing: House Alcohol intake: unknown Patient Tobacco Use Status: Never used Tobacco e-Cigarette/Vaping Use: Never Used service: No Current occupational status: employed Cognitive needs: No Hearing needs: No Vision needs: No Questionnaire PHQ-9 Over the last 2 weeks, how often have you been bothered by any of the following problems? 1. Little interest or pleasure in doing things: not at all 2. Feeling down, depressed, or hopeless: not at all 3. Trouble falling or staying asleep, or sleeping too much: not at all 4. Feeling tired or having little energy: not at all 5. Poor appetite or overeating: not at all 6. Feeling bad about yourself - or that you are a failure or have let yourself or your family down: not at all 7. Trouble concentrating on things, such as reading the newspaper or watching television: not at all 8. Moving or speaking so slowly that other people could have noticed. Or the opposite - being so fidgety or restless that you have been moving around a lot more than usual: not at all 9. Thoughts that you would be better off or of hurting yourself in some way: not at all Total score: 0 Depression Screening Interpretation: Negative Depression Screening Done: Yes 99261 - PHQ-9 Billing: Yes Source: Developed by Drs. Sheldon Cardenas, Jazmine Delacruz, Isai Mcconnell and colleagues, with an educational sybil from [employer]. Thrive Questionnaire Date Thrive assessed: 08/31/24 I am a: Patient Within the past 12 months, did the food you bought not last and you didn't have the money to get more?: Never true Within the past 12 months, did you worry whether your food would run out before you got money to buy more?: Never true Do you have trouble paying for medicines?: No Do you have trouble getting transportation to medical appointments?: No Do you have trouble paying your heating and electricity bill?: No Do you have trouble taking care of your child, family member or friend?: No Do you have trouble with day-to-day activities such as bathing, preparing meals, shopping, managing finances, etc.?: No Are you currently unemployed and looking for a job?: No Are you interested in more education?: No THRIVE Score: 0 AUDIT C Alcohol Use Questionnaire (AUDIT-C) 1. How often do you have a drink containing alcohol?: Monthly or less 2. How many drinks containing alcohol do you have on a typical day when you are drinking?: 1 or 2 3. How often do you have six or more drinks on one occasion?: Less than monthly Total Score: 2 KAILASH-7 AMB Questionnaire KAILASH-7 Date KAILASH - 7 assessed: 08/31/24 Feeling nervous, anxious, or on edge: 0 = Not at all Not being able to stop or control worryin = Not at all Worrying too much about different things: 0 = Not at all Trouble relaxin = Not at all Being so restless that it is hard to sit still: 0 = Not at all Becoming easily annoyed or irritable: 0 = Not at all Feeling afraid as if something awful might happen: 0 = Not at all Total KAILASH-7 score (0-4 normal; 5-9 mild; 10-14 moderate; 15-21 severe): 0 Source: Developed by Drs. Sheldon Cardenas, Jazmine Delacruz, Isai Mcconnell and colleagues, with an educational sybil from [employer]. Physical exam (Primary Care) Vital Signs: Last Vital Signs Temp 97.7 F 08/31/24 15:39 Pulse 111 H 08/31/24 15:39 BP 126/80 08/31/24 15:39 Pulse Ox 98 08/31/24 15:39 Oxygen Delivery Method Room Air 08/31/24 15:39 BMI result Body Mass Index 30.1 Tobacco/Smoking Status: Tobacco use Status Tobacco use date assessed 08/31/24 08/31/24 15:44 Patient Tobacco Use Status Never used Tobacco 08/31/24 15:51 e-Cigarette/Vaping Use Never Used 08/31/24 15:44 PHQ-9: PHQ-9 Score PHQ-9: Total score 0 09/03/24 13:33 Depression Screening Interpretation: Negative Thrive Assessment: Date of Thrive Assessment Date Thrive assessed 08/31/24 08/31/24 15:44 Coding Level of Care Code New Pt Level 4 (51124) Complex EM visit Add On G2211 Diagnoses Type 2 diabetes mellitus with hyperglycemia, without long-term current use of insulin E11.65 Diabetes mellitus complication status: with hyperglycemia Diabetes mellitus superintendent terminal insulin use: without [facility] use Diabetes mellitus type: type 2 Gastroesophageal reflux disease, unspecified whether esophagitis present K21.9 Esophagitis presence: esophagitis presence not specified Additional Codes PHQ-9 - 51003 - PHQ-9 Billing: Yes ([id number]) Assessment & Plan Assessment & Plan (1) Diabetes: Code(s): E11.9 - Type 2 diabetes mellitus without complications Category: Medical Qualifiers: Diabetes mellitus complication status: with hyperglycemia Diabetes mellitus superintendent terminal insulin use: without superintendent terminal use Diabetes mellitus type: type 2 Qualified Code(s): E11.65 - Type 2 diabetes mellitus with hyperglycemia (2) Acid reflux: Code(s): K21.9 - Gastro-esophageal reflux disease without esophagitis Category: Medical Qualifiers: Esophagitis presence: esophagitis presence not specified Qualified Code(s): K21.9 - Gastro-esophageal reflux disease without esophagitis Plan 59 y/o to establish care past medical, surgical.social, family history reviewed Diabetes improving control. Due for A1C in 3 weeks. Will adjust medications REturn in 4 months Orders: Orders Hemoglobin A1c 4 Months E11.9 - Type 2 diabetes mellitus without complications, K21.9 - Gastro-esophageal reflux disease without esophagitis, Z12.5 - Encounter for screening for malignant neoplasm of prostate Lipid Panel 4 Months E11.9 - Type 2 diabetes mellitus without complications, K21.9 - Gastro-esophageal reflux disease without esophagitis, Z12.5 - Encounter for screening for malignant neoplasm of prostate Microalbumin, Random (w Creat) 4 Months E11.9 - Type 2 diabetes mellitus without complications, K21.9 - Gastro-esophageal reflux disease without esophagitis, Z12.5 - Encounter for screening for malignant neoplasm of prostate Hemoglobin A1c 3 Weeks E11.9 - Type 2 diabetes mellitus without complications, K21.9 - Gastro-esophageal reflux disease without esophagitis, Z12.5 - Encounter for screening for malignant neoplasm of prostate Comprehensive Met. Panel 4 Months E11.9 - Type 2 diabetes mellitus without complications, K21.9 - Gastro-esophageal reflux disease without esophagitis, Z12.5 - Encounter for screening for malignant neoplasm of prostate Prostate Specific Antigen 4 Months E11.9 - Type 2 diabetes mellitus without complications, K21.9 - Gastro-esophageal reflux disease without esophagitis, Z12.5 - Encounter for screening for malignant neoplasm of prostate
== END 2024-08-31 16:08 | disposition home or self-care (01) ==
LOC: HO.HMCHD 15:25
PROVIDERS: PCP Internal Medicine; Visit Provider Internal Medicine
DX: E11.65 Type 2 diabetes mellitus with hyperglycemia (principal); K21.9 Gastro-esophageal reflux disease without esophagitis

== ENCOUNTER → 2024-08-31 15:24 | Outpatient (BNVA) | payer OTHER, SELFPAY | PROVIDERS: PCP Internal Medicine; Visit Provider Internal Medicine | DX: E11.65 Type 2 diabetes mellitus with hyperglycemia (principal); K21.9 Gastro-esophageal reflux disease without esophagitis; E78.5 Hyperlipidemia, unspecified | CPT/HCPCS: 96127 ==